=== PATIENT | male | born 1960 | race Caucasian/White ===

== ENCOUNTER 2016-10-06 04:22 | Emergency (ER) | payer BC ==
[~2016-10-06] VITALS: Ht 177.8 cm; Wt 95.4 kg
[~2016-10-06 04:22] MED LIST: FLEXERIL10 MG PO; NAPROSYN500 MG PO; NOHOMEMEDS; PREDNISONE10 MG PO; ULTRAM50 MG PO
[2016-10-06 05:32] LABS: CHLORIDE 102 mEq/L (99-109); SODIUM 136 mEq/L (136-147)
[2016-10-06 05:34] LABS: HEMATOCRIT 50.9 % (38.0-50.0); MCH 32.5 PG (29.0-34.0); MCHC 34.2 G/DL (30.0-36.0); MCV 95.1 FL (86-99); PLATELET COUNT 197 K/uL (156-360); RBC DIS.WIDTH-CV 12.1 % (11.8-14.6); RBC DIS.WIDTH-SD 42.2 % (39-53); RED BLOOD COUNT 5.35 M/uL (4.00-5.50); WHITE BLOOD COUNT 8.4 K/uL (4.1-10.2)
[2016-10-06 05:35] LABS: GLUCOSE 117 mg/dL (70-99)
[2016-10-06 05:36] LABS: ANION GAP 11 MEQ/L (2-14)
[2016-10-06 05:38] LABS: ALKALINE PHOSPHATASE 68 IU/L (3-129)
[2016-10-06 05:39] LABS: GFR ESTIMATE (CALCULATED) > 59 mL/min/
[2016-10-06 05:40] LABS: UREA NITROGEN (BUN) 10 mg/dL (9-23)
[2016-10-06 05:42] LABS: CREATINE KINASE 113 IU/L (1-294); LIPASE 47 U/L (1.0-51.0); TOTAL CK 113 IU/L (1-294)
[2016-10-06 06:11] VITALS: BP 126/83
== END 2016-10-06 06:11 | disposition home or self-care (01) ==
LOC: EME 04:22
PROVIDERS: Emergency Medicine
DX: R51 Headache (principal); K59.00 Constipation, unspecified; E86.0 Dehydration; F17.200 Nicotine dependence, unspecified, uncomplicated
CPT/HCPCS: 74022; 80053; 81003; 82550; 82553; 83690; 85027; 99281; 99284